=== PATIENT | male | born 1950 | race Caucasian/White ===

== ENCOUNTER 2019-09-15 18:36 | Emergency (ER) | payer MEDICARE ==
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
--- NOTE | 2019-09-15 23:26 | RADIOLOGY REPORT (SQ) ---
EXAM: CT HEAD WITHOUT IV CONTRAST CLINICAL INDICATION: 68-year-old male status post fall with possible injury to the head and bizarre behavior. COMPARISON: 10/16/2015. TECHNIQUE: CT brain without contrast. This exam was performed according to our departmental dose optimization program which includes use of automated exposure control, adjustment of the mA and/or kV according to patient size and/or use of iterative reconstruction technique. FINDINGS: Multifocal regions of patchy hypoattenuation are present in a subcortical and periventricular deep white matter distribution, nonspecific; however, most likely represent small vessel ischemic disease, age indeterminate. The ventricles, sulci, and cisterns are symmetric and unremarkable. Partial empty sella otherwise the midline structures are within normal limits. The friedman-white matter differentiation is preserved. There is no mass effect, midline shift, intra- or extra-axial fluid collection/acute hemorrhage. The osseous structures are unremarkable. The paranasal sinuses and mastoid air cells are clear. IMPRESSION: 1. No acute intracranial abnormalities. Nonspecific white matter change most likely small vessel ischemic disease, age indeterminate. 2. CT is insensitive for early evaluation of acute stroke. If there is clinical concern for acute ischemia, an MRI may be considered.
[2019-09-16 04:40] LABS: ABSOLUTE LYMPHOCYTES (AUTO) 1.2 10^3/uL (0.5-4.7); ABSOLUTE MONOCYTES (AUTO) 0.8 10^3/uL (0.1-1.4); ABSOLUTE NEUT (AUTO) 6.3 10^3/uL (1.7-8.2); BASOPHILS % (AUTO) 0.2 % (0-2); EOSINOPHILS % (AUTO) 0.3 % (0-6); HEMOGLOBIN 15.4 g/dL (13.5-17.0); LYMPHOCYTES % (AUTO) 14.2 % (13-45); MEAN CORPUSCULAR HEMOGLOBIN 32.4 pg (27.0-33.4); MEAN CORPUSCULAR HGB CONC 35.1 g/dL (32.0-36.0); MEAN CORPUSCULAR VOLUME 92 fl (80-97); MONOCYTES % (AUTO) 9.4 % (3-13); PLATELET COUNT 255 10^3/uL (150-450); RED BLOOD COUNT 4.77 10^6/uL (4.35-5.55); RED CELL DISTRIBUTION WIDTH 12.6 % (11.5-14.0); SEGMENTED NEUTROPHILS % (AUTO) 75.9 % (42-78); TOTAL CELLS COUNTED % (AUTO) 100 %; WHITE BLOOD COUNT 8.4 10^3/uL (4.0-10.5)
[2019-09-16 05:05] LABS: ALKALINE PHOSPHATASE 82 U/L (38-126); ANION GAP 11 (5-19); ASPARTATE AMINO TRANSFERASE 58 U/L (17-59); BILIRUBIN,DIRECT 0.3 mg/dL (0.0-0.4); BILIRUBIN,TOTAL 0.9 mg/dL (0.2-1.3); BLOOD UREA NITROGEN 25 mg/dL (7-20); CALCIUM 10.3 mg/dL (8.4-10.2); CARBON DIOXIDE 31 mmol/L (22-30); CHLORIDE 102 mmol/L (98-107); GLUCOSE 88 mg/dL (75-110); POTASSIUM 3.6 mmol/L (3.6-5.0); TOTAL PROTEIN 7.2 g/dL (6.3-8.2)
[2019-09-16 05:06] LABS: ACETAMINOPHEN < 10 ug/mL (10-30); SALICYLATE < 1.0 mg/dL (2.0-20.0)
[2019-09-16 05:54] LABS: APPEARANCE,URINE CLEAR; BILIRUBIN,URINE NEGATIVE (NEGATIVE); COLOR,URINE YELLOW; GLUCOSE, URINE NEGATIVE (NEGATIVE); KETONES,URINE 20 mg/dL (NEGATIVE); PROTEIN,URINE 30 mg/dL (NEGATIVE); URINE SPECIFIC GRAVITY 1.009; UROBILINOGEN,URINE NEGATIVE mg/dL (<2.0)
[2019-09-16 06:16] LABS: URINE AMPHETAMINES SCREEN NEGATIVE; URINE BARBITURATES SCREEN NEGATIVE; URINE BENZODIAZEPINES SCREEN NEGATIVE; URINE COCAINE SCREEN NEGATIVE; URINE MARIJUANA (THC) SCREEN NEGATIVE; URINE METHADONE SCREEN NEGATIVE; URINE PHENCYCLIDINE SCREEN NEGATIVE
[2019-09-16] MEDS ORDERED: NORMAL SALINE 1000 ML 1,000 ML IV ONE (06:50)
--- NOTE | 2019-09-16 09:25 | ER Document Report ---
Doctor's Note Notes: 09/16/19 1200 Patient's chart reviewed, patient continues to be medically cleared. He is awaiting clearance from psych team. He has no acute complaints at this time. Family is at bedside. PHYSICAL EXAMINATION: GENERAL: Well-appearing, well-nourished and in no acute distress. HEAD: Atraumatic, normocephalic. EYES: Pupils equal round extraocular movements intact, conjunctiva are normal. ENT: Nares patent NECK: Normal range of motion LUNGS: No respiratory distress Musculoskeletal: Normal range of motion NEUROLOGICAL: Normal speech, normal gait. PSYCH: Normal mood, normal affect. SKIN: Warm, Dry, normal turgor, no rashes or lesions noted.
[2019-09-16] MEDS ORDERED: RISPERIDONE 0.25 MG TABLET PO PRN (15:04)
[2019-09-16] MEDS: CLONIDINE 0.1 MG/24 HR PATCH.TDWK TD SCH (16:17)
[2019-09-16] MEDS: DIVALPROEX SODIUM 250 MG TAB.SR.24H PO SCH (17:14)
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
[2019-09-17] MEDS: DIVALPROEX SODIUM 250 MG TAB.SR.24H PO SCH (09:31)
[2019-09-17] MEDS: CLONIDINE 0.1 MG/24 HR PATCH.TDWK TD SCH (09:31)
[2019-09-17] MEDS ORDERED: BUSPIRONE HCL 10 MG TABLET PO ONE (11:02)
--- NOTE | 2019-09-17 11:49 | ER Document Report ---
Doctor's Note Notes: 09/17/19 11:47 Patient is sitting at the edge of the bed alert and oriented with his . Patient is very pleasant and interactive. Patient is in no acute distress and has no acute complaints at this time. I have given the patient a 30-day supply of medication recommendations from the psychiatric team. As the rounding provider this AM, I assessed the patient's labs, vitals, and records. No concerning findings this morning. Patient is cleared for disposition by psychiatry. It appears the patient is medically stable for transfer or discharge and mental health wishes to discharge patient with close follow-up services in place.
--- NOTE | 2019-09-17 12:11 | PSYCHOLOGICAL NOTE ---
Psych Note - Psych Note Date seen by psych provider: 09/17/19 Time seen by psych provider: 08:55 Psych Note: Reason for consult: Bizarre behavior; history of Bipolar Disorder Patient states he is doing well. Patient states the medication "slows me down and makes me stupid." Patient stated he would continue with medications at discharge. 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 Patient has no insight into his current situation and what brought him to the ED. Clinician notes continued tangential thought processes. Mood is normal with congruent affect. Patient denies suicidal and homicidal ideations. Delusions are present. There is no observed behavior that suggests patient is responding to internal stimuli. Patient denies current auditory and visual hallucinations. Eye contact is appropriate. Conversational speech is within normal rate, tone, and prosody. Intellectual ability appears to be within average range. Attention and concentration are good. Insight, judgment and impulse control are currently fair. DSM Diagnosis: Possible dementia like processes Medication recommendations per [facility] contracted psychiatrist Dr. Heidy MARTINEZ is as follows: Clonidine 0.1 MG, 24HR patch Depakote 250MG, twice a day Buspar 5MG, twice a day Risperdal 0.25MG, as needed Impression/Plan: Patient is cleared from acute psychiatric services. Patient does not meet IVC criteria per [place] GS 122C. It is recommended that IVC be rescinded. Patient denies suicidal and homicidal ideations. There is no observed behavior that suggests patient is responding to internal stimuli. Patient denies current auditory and visual hallucinations. It is believed that patient's current presentation is likely due to possible dementia like processes. Patient is tolerating medication well. Plan is for patient to follow up with neurologist. Patient's spouse agrees to be part of patient's plan of care; medication management and administration; assisting with making follow up appointments; monitoring for signs of distress. Dr. Lan was consulted on the care and management of this patient; attending physician is in agreement with recommendations and disposition.
[2019-09-17 12:43] VITALS: BP 188/98
== END 2019-09-17 14:05 | disposition home or self-care (01) ==
LOC: ER 18:36
DX: F91.9 Conduct disorder, unspecified (principal); F29 Unspecified psychosis not due to a substance or known physiological condition; E78.00 Pure hypercholesterolemia, unspecified; I10 Essential (primary) hypertension
CPT/HCPCS: 99285; 96360; 96361; 36415; 80307 ×3; 85025; 80053; 81001; 70450; A9270 ×3; J3490

== ENCOUNTER 2019-09-21 16:13 | Emergency (ER) | payer MEDICARE ==
[2019-09-21] MEDS ORDERED: CHLORPROMAZINE HCL INJ 25 MG/1 ML AMPULE IM ONE (18:45)
--- NOTE | 2019-09-21 19:00 | ER Document Report ---
ED Psych Disorder / Suicide - General Chief Complaint: Psych Problem Stated Complaint: PSYCH Time Seen by Provider: 09/21/19 16:48 Mode of Arrival: Ambulatory Information source: Patient, Friend, POA - Power of Rn Manager TRAVEL OUTSIDE OF THE [place] IN LAST 30 DAYS: No - HPI Patient complains to provider of: Aggression, Agitated, Bizarre behavior, Hallucinating. No: Suicidal attempt Onset: Last week Quality of pain: No pain Suicide Risk Factors: Age >65, Bipolar, Loss of rational thought, Male Normal mood: No Associated symptoms: Aggressive, Irritable, Paranoid, Druze preoccupation Similar symptoms previously: Yes Recently seen / treated by doctor: Yes - Related Data Allergies/Adverse Reactions: yellow dye [Yellow Dye] Adverse Reaction (Verified 10/16/15 12:57) Past Medical History - General Information source: Patient, Friend, POA - Power of Rn Manager - Social History Smoking Status: Former Smoker Frequency of alcohol use: None Drug Abuse: None Lives with: Spouse/Significant other Family History: Reviewed & Not Pertinent Patient has suicidal ideation: No Patient has homicidal ideation: No - Past Medical History Cardiac Medical History: Reports: Hx Hypercholesterolemia, Hx Hypertension Pulmonary Medical History: Reports: Hx Asthma - childhood Psychiatric Medical History: Reports: Hx Bipolar Disorder Past Surgical History: Reports: Hx Appendectomy Review of Systems - Review of Systems Constitutional: No symptoms reported. denies: Fever, Recent illness EENT: No symptoms reported Cardiovascular: No symptoms reported Respiratory: No symptoms reported Gastrointestinal: No symptoms reported Genitourinary: No symptoms reported Male Genitourinary: No symptoms reported Musculoskeletal: No symptoms reported Skin: No symptoms reported Hematologic/Lymphatic: No symptoms reported Neurological/Psychological: Hallucinations, Other - insomnia, paranoia Physical Exam - Vital signs Vitals: Temp Pulse Resp BP Pulse Ox 98.4 F 106 H 20 190/105 H 99 09/21/19 16:18 09/21/19 16:18 09/21/19 16:18 09/21/19 16:18 09/21/19 16:18 - General General appearance: Alert In distress: None - HEENT Head: Normocephalic Eyes: Normal Conjunctiva: Normal Sinus: Tenderness Mouth/Lips: Normal Mucous membranes: Normal Neck: Normal, Supple. No: Lymphadenopathy - Respiratory Respiratory status: No respiratory distress Chest status: Nontender Breath sounds: Normal. No: Rales, Rhonchi, Stridor, Wheezing Chest palpation: Normal - Cardiovascular Rhythm: Regular Heart sounds: S1 appreciated, S2 appreciated - Back Back: Normal - Extremities General upper extremity: Normal inspection, Normal strength General lower extremity: Normal inspection, Normal strength - Neurological Neuro grossly intact: Yes Nigel Coma Scale Eye Opening: Spontaneous Ethel Coma Scale Verbal: Oriented Ethel Coma Scale Motor: Obeys Commands Ethel Coma Scale Total: 15 - Psychological Associated symptoms: Irritable, Paranoid, Druze preoccupation, Unable to sle ep, Visual hallucinations - Skin Skin Temperature: Warm Skin Moisture: Dry Skin Color: Normal Course - Re-evaluation Re-evalutation: 09/21/19 19:35 Patient's clergyman at bedside helping to facilitate blood draw, EKG as well as medication administration. Patient continues with paranoid thoughts, preoccupation with hinduism and irritability. 09/21/19 19:45 Patient increasing with agitation, refuses any medication at this time. Patient repeatedly stating that he is going to fight and he will leave the department. Patient a flight risk at this time continues to be a danger to himself. Restraints ordered. 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
[2019-09-21 19:55] LABS: ABSOLUTE BASOPHILS # (AUTO) 0.1 10^3/uL (0.0-0.2); ABSOLUTE EOSINOPHILS # (AUTO) 0.1 10^3/uL (0.0-0.6); ABSOLUTE MONOCYTES (AUTO) 0.7 10^3/uL (0.1-1.4); ABSOLUTE NEUT (AUTO) 5.9 10^3/uL (1.7-8.2); BASOPHILS % (AUTO) 1.1 % (0-2); EOSINOPHILS % (AUTO) 0.8 % (0-6); HEMATOCRIT 47.5 % (37.9-51.0); HEMOGLOBIN 16.3 g/dL (13.5-17.0); LYMPHOCYTES % (AUTO) 22.2 % (13-45); MEAN CORPUSCULAR HEMOGLOBIN 31.9 pg (27.0-33.4); MEAN CORPUSCULAR HGB CONC 34.2 g/dL (32.0-36.0); MEAN CORPUSCULAR VOLUME 93 fl (80-97); MONOCYTES % (AUTO) 8.5 % (3-13); PLATELET COUNT 312 10^3/uL (150-450); RED BLOOD COUNT 5.09 10^6/uL (4.35-5.55); RED CELL DISTRIBUTION WIDTH 12.8 % (11.5-14.0); SEGMENTED NEUTROPHILS % (AUTO) 67.4 % (42-78); TOTAL CELLS COUNTED % (AUTO) 100 %; WHITE BLOOD COUNT 8.8 10^3/uL (4.0-10.5)
[2019-09-21 19:59] LABS: APPEARANCE,URINE CLEAR; BILIRUBIN,URINE NEGATIVE (NEGATIVE); COLOR,URINE YELLOW; GLUCOSE, URINE NEGATIVE (NEGATIVE); KETONES,URINE NEGATIVE (NEGATIVE); LEUKOCYTE ESTERASE,URINE NEGATIVE (NEGATIVE); NITRITE,URINE NEGATIVE (NEGATIVE); PROTEIN,URINE 30 mg/dL (NEGATIVE); UROBILINOGEN,URINE NEGATIVE mg/dL (<2.0)
--- NOTE | 2019-09-21 20:08 | EKG REPORT ---
SEVERITY:- ABNORMAL ECG - SINUS RHYTHM RIGHT BUNDLE BRANCH BLOCK PROBABLE INFERIOR INFARCT, OLD : Confirmed by: Lilibeth Beatty MD 21-Sep-2019 20:07:30
[2019-09-21 20:12] LABS: ALBUMIN 4.2 g/dL (3.5-5.0); ALKALINE PHOSPHATASE 82 U/L (38-126); ANION GAP 8 (5-19); ASPARTATE AMINO TRANSFERASE 27 U/L (17-59); BILIRUBIN,DIRECT 0.1 mg/dL (0.0-0.4); BILIRUBIN,TOTAL 0.5 mg/dL (0.2-1.3); BLOOD UREA NITROGEN 17 mg/dL (7-20); CALCIUM 10.5 mg/dL (8.4-10.2); CARBON DIOXIDE 31 mmol/L (22-30); CHLORIDE 104 mmol/L (98-107); GLUCOSE 97 mg/dL (75-110); POTASSIUM 4.3 mmol/L (3.6-5.0); TOTAL PROTEIN 7.4 g/dL (6.3-8.2)
[2019-09-21 20:13] LABS: ACETAMINOPHEN < 10 ug/mL (10-30); ALCOHOL < 10 mg/dL (NONE DETECTED); SALICYLATE < 1.0 mg/dL (2.0-20.0)
[2019-09-21 20:19] LABS: URINE AMPHETAMINES SCREEN NEGATIVE; URINE BARBITURATES SCREEN NEGATIVE; URINE BENZODIAZEPINES SCREEN NEGATIVE; URINE COCAINE SCREEN NEGATIVE; URINE MARIJUANA (THC) SCREEN NEGATIVE; URINE METHADONE SCREEN NEGATIVE; URINE PHENCYCLIDINE SCREEN NEGATIVE
[2019-09-21] MEDS ORDERED: DIPHENHYDRAMINE HCL 50 MG/ML VIAL IM ONE (21:21)
[2019-09-22] MEDS: VALPROATE SODIUM SYRUP 250 MG/5 ML UDCUP PO SCH ×2 (09:54→18:19)
[2019-09-22] MEDS: BUSPIRONE HCL 10 MG TABLET PO SCH ×2 (09:54→18:19)
--- NOTE | 2019-09-22 11:44 | PSYCHOLOGICAL NOTE ---
Psych Note - Psych Note Date seen by psych provider: 09/22/19 Time seen by psych provider: 11:05 Psych Note: Patient is a 68 year old male who presents to ED via EMS for complaints of "psych problems. Patient was seen by behavioral health on 09/16/2019 and released on 09/17/2019. Patient and were advised to follow up with neurology. Patient has reported diagnosis of "Bipolar and Schizophrenia;" there is language in the Head CT report dated 09/15/2019 suggestive of dementia like processes. Head CT scan on 10/16/2015 did not contain language of dementia like processes. Patient has no insight into his current situation and what brought him to the ED. Patient states he is here, again, against his will. Clinician notes continued tangential thought processes. Patient is generally a poor historian. Patient is generally noncompliant with medications. Patient states she his because she would not come home. Patient's mood is elevated. Clinician notes irritability. Clinician notes tangential processes. Delusions are present. DSM Diagnosis: Per report, Schizophrenia Per report, Bipolar Possible Dementia like processes Medication recommendations per [facility] contracted psychiatrist Dr. Heidy MARTINEZ is as follows: Depakene 250MG, twice a day Buspar 5MG, twice a day Add Risperidone 0.25 MG, Scheduled 08:00 and 15:00 Add Clonadine Patch 0.1MG 24HR Patch Add Vistaril 50MG (IM) Q6 scheduled Attending physicians are asked to consider to AVOID prescribing benzodiazepines (e.g. Ativan, Xanax, Valium, Klonopin), antipsychotics (e.g. Haldol, Geodon, Zyprexa, Seroquel), some sleep aids (e.g. Ambien, Lunesta, Sonata), narcotic pain medications, and high dose steroids (prednisone) as these have been known to cause and/or increase symptoms of aggression, psychosis and/or paranoia in patients with neruodegenerative processes such as dementia, Alzheimer's Disease, TBI, etc. In the geriatric and severe chronic mental illness populations a urinary tract infection can cuase an acute change in mental status this can range from agitation, aggression, restlessness to withdrawing, confusion, hallucinations or delusions. Impression/Plan: Patient is NOT cleared from acute psychiatric services. Patient DOES meet IVC criteria per [place] GS 122C. It is recommended that IVC be maintained. Patient presents as manic. There are concern for dementia like processes. Plan is to stabilize and obtain appropriate placement. Dr. Lan was consulted on the care and management of this patient; attending physician is in agreement with recommendations and disposition.
[2019-09-22] MEDS ORDERED: CHLORPROMAZINE HCL INJ 25 MG/1 ML AMPULE IM SCH ×2 (14:00→18:00)
[2019-09-22] MEDS ORDERED: LORAZEPAM INJ 2 MG/1 ML VIAL IM ONE (14:07)
[2019-09-22] MEDS ORDERED: HYDROXYZINE HCL INJ 50 MG/1 ML VIAL IM SCH (14:30)
[2019-09-22] MEDS ORDERED: CHLORPROMAZINE HCL 25 MG TABLET PO ONE (15:07)
[2019-09-22] MEDS ORDERED: HYDROXYZINE PAMOATE 50 MG CAPSULE PO ONE (16:07)
[2019-09-22] MEDS ORDERED: CLONIDINE 0.1 MG/24 HR PATCH.TDWK TD ONE (18:32)
[2019-09-22] MEDS ORDERED: HYDROXYZINE PAMOATE 50 MG CAPSULE PO SCH (18:45)
--- NOTE | 2019-09-22 19:27 | ER Document Report ---
Doctor's Note Notes: 09/22/19 19:26 late addition. Patient is nontoxic, well-appearing. Patient is pending placement per psychiatric evaluation. Patient's vitals are currently reassuring.
[2019-09-22] MEDS: CLONIDINE 0.1 MG/24 HR PATCH.TDWK TD SCH (19:59)
[2019-09-22] MEDS: HYDROXYZINE HCL INJ 50 MG/1 ML VIAL IM SCH (20:00)
[2019-09-23] MEDS: HYDROXYZINE PAMOATE 50 MG CAPSULE PO PRN ×5 (01:38→23:24)
[2019-09-23] MEDS: HYDROXYZINE HCL INJ 50 MG/1 ML VIAL IM SCH ×4 (01:38→17:36)
[2019-09-23] MEDS: VALPROATE SODIUM SYRUP 250 MG/5 ML UDCUP PO SCH ×2 (09:27→17:35)
[2019-09-23] MEDS: CLONIDINE 0.1 MG/24 HR PATCH.TDWK TD SCH (09:27)
[2019-09-23] MEDS: BUSPIRONE HCL 10 MG TABLET PO SCH ×2 (09:28→17:35)
--- NOTE | 2019-09-23 09:40 | PSYCHOLOGICAL NOTE ---
Psych Note - Psych Note Date seen by psych provider: 09/23/19 Time seen by psych provider: 07:30 Psych Note: Reason for Consult:psych problems please note, Patient is under IVC: He CANNOT refuse medications Patient is a 68 year old male who presents to ED via EMS for complaints of "psych problems." Check in conducted with patient: Patient continues to demonstrate manic behavior with disorganized thought processes. Patient demonstrates flight of thought and delusions. Chart review" Head CT 09/15/2019 suggestive of dementia like processes Head CT 10/16/2015 no findings Diagnosis: Bipolar per history R/O neurocognitive disorder Medication recommendations per [facility] contracted psychiatrist Dr. Heidy MARTINEZ are as follows: Depakene 250mg, twice a day Buspar 5mg, twice a day Add Risperidone 0.25 MG, Scheduled 08:00 and 16:00 Add Clonidine 0.1mg 24HR Transdermal patch Add Vistaril 50mg (IM) Q6 scheduled Attending physicians are asked to consider to AVOID prescribing benzodiazepines (e.g. Ativan, Xanax, Valium, Klonopin), antipsychotics (e.g. Haldol, Geodon, Zyprexa, Seroquel), some sleep aids (e.g. Ambien, Lunesta, Sonata), narcotic pain medications, and high dose steroids (prednisone) as these have been known to cause and/or increase symptoms of aggression, psychosis and/or paranoia in patients with neruodegenerative processes such as dementia, Alzheimer's Disease, TBI, etc. Impression/Plan: Patient is recommended to continue IVC. Patient continues to present manic. There are concern for possible dementia like processes so attending physician are asked to keep this in mind when prescribing medications. Medication recommendations have been provided. Dr. Lan was consulted on the care and management of this patient; attending physician is in agreement with recommendations and disposition.
--- NOTE | 2019-09-23 14:27 | ER Document Report ---
Doctor's Note Notes: 09/23/19 14:24 patient is calm and walking around unit with blanket calling it his "baby." Patient toxic, well-appearing. Patient is easily directable by staff. Patient is currently awaiting placement per psychiatric team.
[2019-09-23] MEDS: RISPERIDONE 0.25 MG TABLET PO SCH ×2 (15:21→19:31)
[2019-09-23] MEDS ORDERED: DIPHENHYDRAMINE HCL 50 MG/ML VIAL IM ONE (19:25)
[2019-09-24] MEDS: HYDROXYZINE HCL INJ 50 MG/1 ML VIAL IM SCH ×2 (00:24→05:40)
[2019-09-24] MEDS: HYDROXYZINE PAMOATE 50 MG CAPSULE PO PRN ×2 (01:01→05:34)
[2019-09-24] MEDS ORDERED: HALOPERIDOL LACTATE INJ 5 MG/1 ML VIAL IM ONE (03:16)
[2019-09-24] MEDS ORDERED: HALOPERIDOL LACTATE INJ 5 MG/1 ML VIAL ONE (03:17)
--- NOTE | 2019-09-24 09:36 | PSYCHOLOGICAL NOTE ---
Psych Note - Psych Note Date seen by psych provider: 09/24/19 Time seen by psych provider: 07:40 Psych Note: Reason for Consult:psych problems please note, Patient is under IVC: He CANNOT refuse medications Patient is a 68 year old male who presents to ED via EMS for complaints of "psych problems." Check in conducted with patient: Patient was able to engage more effectively in conversation; however, continues to demonstrate tangential thought processes. Patient continues to need frequent redirection and demonstrates limited insight, judgment and impulse control. Patient required restraints again last night due to his continued attempts at elopement and jasmine. Chart review Head CT 09/15/2019 suggestive of dementia like processes Head CT 10/16/2015 no findings Diagnosis: Bipolar per history R/O neurocognitive disorder Medication recommendations per [facility] contracted psychiatrist Dr. Heidy MARTINEZ are as follows: Depakene 250mg, twice a day Buspar 5mg, twice a day Add Risperidone 0.25 MG, Scheduled 08:00 and 15:00 Add Clonidine 0.1mg 24HR Transdermal patch Add Vistaril 50mg (IM) Q6 scheduled Attending physicians are asked to consider to AVOID prescribing benzodiazepines (e.g. Ativan, Xanax, Valium, Klonopin), antipsychotics (e.g. Haldol, Geodon, Zyprexa, Seroquel), some sleep aids (e.g. Ambien, Lunesta, Sonata), narcotic pain medications, and high dose steroids (prednisone) as these have been known to cause and/or increase symptoms of aggression, psychosis and/or paranoia in patients with neruodegenerative processes such as dementia, Alzheimer's Disease, TBI, etc. Impression/Plan: Patient is recommended to continue IVC. Patient continues to present manic. There are concern for possible dementia like processes so attending physician are asked to keep this in mind when prescribing medications. Medication recommendations have been provided. Dr. Lan was consulted on the care and management of this patient; attending physician is in agreement with recommendations and disposition.
[2019-09-24] MEDS: VALPROATE SODIUM SYRUP 250 MG/5 ML UDCUP PO SCH (10:36)
[2019-09-24] MEDS: RISPERIDONE 0.25 MG TABLET PO SCH (10:36)
[2019-09-24] MEDS: BUSPIRONE HCL 10 MG TABLET PO SCH (10:36)
[2019-09-24 13:11] VITALS: BP 152/88
== END 2019-09-24 13:37 ==
LOC: ER 16:13
DX: F29 Unspecified psychosis not due to a substance or known physiological condition (principal); F22 Delusional disorders; F31.9 Bipolar disorder, unspecified; G47.00 Insomnia, unspecified; R45.1 Restlessness and agitation; I10 Essential (primary) hypertension; Z78.1 Physical restraint status; Z87.891 Personal history of nicotine dependence
CPT/HCPCS: 93005; 99285; 96372; 36415; 80307 ×4; 85025; 80053; 81001; 93010; J3230; J1200; J1630; A9270 ×4; J3410; J3490